=== PATIENT | male | born 1965 | race Caucasian/White ===

== ENCOUNTER 2021-07-09 06:42 | Day surgery (SDC) | payer OTHER, SELFPAY ==
[2021-06-25 15:43] VITALS: BMI 26.4
--- NOTE | 2021-07-08 17:33 | WPDANESEPP ---
Anes - Eval Pre Procedure Procedure: Operation Date: 07/09/21 07:30 Proposed Procedures p Screening Colonoscopy - Darío Mariano MD Date/Time: 07/08/21 17:33 Pre Op Diagnosis: neoplasm screening Patient Data Age: 56 Gender: M Height: 1.85 m Weight: 91 kg Allergies Allergy/AdvReac Type Severity Reaction Status Date / Time No Known Allergies Allergy Verified 06/25/21 15:41 Home Medications Medication Instructions Recorded Confirmed Type sodium,potassium,mag sulfates 17.5 See Rx Instructions PO .COMPLEX 06/06/21 Rx gram-3.13 gram-1.6 gram oral soln #354 ml sod picosulf 10 mg-magnes 3.5 160 ml PO DAILY #160 ml 06/17/21 Rx gram-citric 12 gram/160 mL oral solution mecobalamin (vitamin B12) 1,000 mcg PO DAILY 06/25/21 06/25/21 History Patient hx anesthesia problems: none Family hx anesthesia problems: none PMFSH Past Medical History Medical History (Updated 07/08/21 @ 17:33 by Tj Rojas DO) Diverticulosis Hyperlipemia Surgical History Surgical History H/O removal of cyst (~2011) Family History Family History Unknown Depression Anxiety Glaucoma Social History Social History Smoking status: Never smoker Alcohol intake: current Drinks per week: 10 Living arrangements: with family Spiritual care concerns: No Exam Day of Procedure 07/08/21 17:33
[2021-07-09 06:23] VITALS: BP 131/76; PULSE 68; RESP 14; TEMP 35.8; O2SAT 99; BMI 25.2
[2021-07-09] MEDS: LACTATED RINGERS 1,000 ML 150 ML IV CONT (06:34)
--- NOTE | 2021-07-09 06:39 | P.PNAN_ITS ---
Anes - Eval Final PreProcedure Day of Procedure 07/09/21 06:39 Patient weight: normal Heart: regular rate and rhythm Lungs: clear to auscultation Airway: Mallampati scale class II Neurological: alert and oriented Last oral intake: >/= 8 hours ASA classification: I Emergent: no Anesthetic plan: proceed Anesthesia type and monitoring: general GIVS and standard monitoring Informed Consent: The patient's anesthetic plan and its attendant risks and be nefits were discussed with the patient/family/POA. Questions were solicited and answers provided to the satisfaction of the patient/family/POA.
--- NOTE | 2021-07-09 07:29 | P.CONGI_ITS ---
Assessment and Plan Assessment and plan (1) History of colon polyps: Code(s): Z86.010 - Personal history of colonic polyps Status: Acute Assessment and Plan: Patient gives a history of prior colon polyps. Plan is for surveillance colonoscopy at this time. further recommendations will be determined at the time of endoscopy. Most typically follow-up happens at 5 year intervals after having had colon polyps. GI Consult Note Consult date/time: 07/09/21 07:29 HPI: Jj Fuentes is a 56 year old male presents for screening colonoscopy. Patient initially had colon polyps 14 years ago. Most recent colonoscopy was 9 years ago. Patient's current weight appetite bowel movements are normal. Patient denies abdominal pain. He has had no bleeding. Family history is noncontributory. Patient presents today for surveillance follow-up colonoscopy. Review of Systems Review of Systems: All systems reviewed & are unremarkable except as noted in HPI and below PMFSH Past Medical History Medical History (Updated 07/09/21 @ 07:31 by Darío Mariano MD) Diverticulosis Hyperlipemia Surgical History Surgical History H/O removal of cyst (~2011) Family History Family History Unknown Depression Anxiety Glaucoma Social History Social History Smoking status: Never smoker Alcohol intake: current Drinks per week: 10 Living arrangements: with family Spiritual care concerns: No Meds Home Medications and Allergies Home Medications Medication Instructions Recorded Confirmed Type mecobalamin (vitamin B12) 1,000 mcg PO DAILY 06/25/21 06/25/21 History ferrous sulfate 27 mg PO DAILY 07/09/21 07/09/21 History Allergies Allergy/AdvReac Type Severity Reaction Status Date / Time No Known Allergies Allergy Verified 07/09/21 06:20 Vital Signs Vital Signs - 24 hr 07/09/21 06:23 Temperature 96.4 F L Pulse Rate 68 Respiratory Rate 14 Blood Pressure 131/76 Pulse Oximetry 99 Exam Narrative: Physical exam reveals patient be alert. Vital signs are stable. HEENT exam is unremarkable. Patient is anicteric. Lungs are clear to auscultation and percussion. Heart is without murmur or extra sounds. Abdominal exam bowel sounds are present soft nontender with no organomegaly. Digital external rectal exam is normal.
[2021-07-09 07:52] VITALS: BP 97/58; PULSE 66; RESP 19; O2SAT 98
[2021-07-09 08:02] VITALS: BP 103/73; PULSE 65; RESP 21; O2SAT 99
[2021-07-09 08:12] VITALS: BP 127/85; PULSE 66; RESP 24; O2SAT 100
== END 2021-07-09 08:25 | disposition home or self-care (01) ==
PROVIDERS: PCP Family Medicine; Visit Provider Internal Medicine Gastroenterology
PROC: 0DJD8ZZ Inspection of Lower Intestinal Tract, Via Natural or Artificial Opening Endoscopic (ICD-10-PCS; CPT 45378; principal; 2021-07-09 07:30)
DX: Z12.11 Encounter for screening for malignant neoplasm of colon (principal); K63.5 Polyp of colon; K57.30 Diverticulosis of large intestine without perforation or abscess without bleeding; K64.8 Other hemorrhoids; E78.5 Hyperlipidemia, unspecified
CPT/HCPCS: 45385; J7120

== ENCOUNTER 2021-10-21 00:34 | Day surgery (SDC) | payer OTHER, SELFPAY ==
[2021-10-06 14:41] VITALS: BMI 26.4
[2021-10-21 11:36] VITALS: BP 129/79; PULSE 69; RESP 18; TEMP 36.1; O2SAT 100; BMI 25.9
--- NOTE | 2021-10-21 12:06 | WPDGICN ---
Assessment and Plan Assessment and plan (1) History of colon polyps: Code(s): Z86.010 - Personal history of colonic polyps Status: Acute Assessment and Plan: Patient has a history of colon polyps identified by colonoscopy in June. Follow-up colonoscopy is advised in 5 years. (2) Occult blood in stools: Code(s): R19.5 - Other fecal abnormalities Status: Acute Assessment and Plan: Patient recently had occult blood in his stool tested and found to be positive on 1/3 occasions. Likely this is related internal hemorrhoids found at recent colonoscopy. (3) Iron deficiency: Code(s): E61.1 - Iron deficiency Status: Acute Assessment and Plan: Patient had recent iron studies obtain is somewhat low on iron currently on iron replacement. In March of this year had mild normochromic normocytic anemia. This is corrected most recent CBC in August was unremarkable suggesting correction of this. Etiology unclear but likely related to hemorrhoids previously identified an EGD is requested will be performed today. GI Consult Note Consult date/time: 10/21/21 12:06 HPI: Jj Fuentes is a 56 year old male Presents for EGD. Patient has a history of colon polyps by a routine colonoscopy in June. At that time he also had hemorrhoids. Patient returned to primary care service and was found that in March of this year had mild normochromic normocytic anemia. Iron studies were obtained with a low ferritin identified. . Patient had 1/3 stool hemoccults positive for this reason he returns for EGD. Review of Systems Review of Systems: All systems reviewed & are unremarkable except as noted in HPI and below PMFSH Past Medical History Medical History Diverticulosis Hyperlipemia Surgical History Surgical History H/O removal of cyst (~2011) Family History Family History Unknown Depression Anxiety Glaucoma Social History Social History Alcohol intake: current Drinks per week: 10 Living arrangements: with family Spiritual care concerns: No Meds Home Medications and Allergies Home Medications Medication Instructions Recorded Confirmed Type mecobalamin (vitamin B12) 1,000 mcg PO DAILY 06/25/21 10/21/21 History ferrous sulfate 27 mg PO DAILY 07/09/21 10/21/21 History trazodone 50 mg tablet 50 mg PO QHS PRN #30 tablet 08/18/21 10/21/21 Rx magnesium tablet PO 10/06/21 History Allergies Allergy/AdvReac Type Severity Reaction Status Date / Time No Known Allergies Allergy Verified 10/21/21 11:45 Vital Signs Vital Signs - 24 hr 10/21/21 11:36 Temperature 97.0 F L Pulse Rate 69 Respiratory Rate 18 Blood Pressure 129/79 Pulse Oximetry 100 Exam Narrative: Physical exam reveals patient be alert. Vital signs stable. HEENT exam is unremarkable. Patient is anicteric. Lungs are clear to auscultation and percussion. Heart is without murmur or extra sounds. Abdominal exam bowel sounds present soft nontender with no hepatosplenomegaly. Digital external rectal exam unremarkable.
[2021-10-21] MEDS: LACTATED RINGERS 1,000 ML 150 ML IV CONT (12:11)
--- NOTE | 2021-10-21 12:11 | P.PNAN_ITS ---
Anes - Initial Pre Proc Eval Procedure: Operation Date: 10/21/21 13:00 Proposed Procedures p Esophagogastroduodenoscopy - Darío Mariano MD Date/Time: 10/21/21 12:11 Surgeon: Darío Mariano MD Pre Op Diagnosis: anemia Patient Data Age: 56 Gender: M Height: 1.85 m Weight: 89.3 kg Last Vital Signs Temp 36.1 C L 10/21/21 11:36 Pulse 69 10/21/21 11:36 Resp 18 10/21/21 11:36 BP 129/79 10/21/21 11:36 Pulse Ox 100 10/21/21 11:36 Allergies Allergy/AdvReac Type Severity Reaction Status Date / Time No Known Allergies Allergy Verified 10/21/21 11:45 Home Medications Medication Instructions Recorded Confirmed Type mecobalamin (vitamin B12) 1,000 mcg PO DAILY 06/25/21 10/21/21 History ferrous sulfate 27 mg PO DAILY 07/09/21 10/21/21 History trazodone 50 mg tablet 50 mg PO QHS PRN #30 tablet 08/18/21 10/21/21 Rx magnesium tablet PO 10/06/21 History Patient hx anesthesia problems: none Family hx anesthesia problems: none Results Review: All pre-operative results and documents have been reviewed as part of the pre-operative evaluation. [facility] Past Medical History Medical History Diverticulosis Hyperlipemia Surgical History Surgical History (Updated 10/21/21 @ 12:11 by Ezio Crump MD) H/O colonoscopy H/O removal of cyst (~2011) Family History Family History Unknown Depression Anxiety Glaucoma Social History Social History Alcohol intake: current Drinks per week: 10 Living arrangements: with family Spiritual care concerns: No Anes - Eval Final PreProcedure Day of Procedure 10/21/21 12:11 Patient weight: normal Heart: regular rate and rhythm Lungs: clear to auscultation Airway: Mallampati scale class II Neurological: alert and oriented Last oral intake: >/= 8 hours ASA classification: II Emergent: no Anesthetic plan: proceed Anesthesia type and monitoring: general GIVS and standard monitoring Results Review: All pre-operative results and documents have been reviewed as part of the pre-operative evaluation. Informed Consent: The patient's anesthetic plan and its attendant risks and benefits were discussed with the patient/family/POA. Questions were solicited and answers provided to the satisfaction of the patient/family/POA.
[2021-10-21 13:13] VITALS: BP 89/51; PULSE 67; RESP 17; O2SAT 97
[2021-10-21 13:23] VITALS: BP 97/52; PULSE 70; RESP 21; O2SAT 99
[2021-10-21 13:33] VITALS: BP 122/69; PULSE 74; RESP 19; O2SAT 100
--- NOTE | 2021-10-22 09:20 | SUR.PHASEII ---
[id number] Dr Mariano made aware of positive H. Pylori. MD also given copy of result. No new orders given.
== END 2021-10-21 13:40 | disposition home or self-care (01) ==
PROVIDERS: PCP Family Medicine; Visit Provider Internal Medicine Gastroenterology
PROC: 0DJ08ZZ Inspection of Upper Intestinal Tract, Via Natural or Artificial Opening Endoscopic (ICD-10-PCS; CPT 43235; principal; 2021-10-21 13:00)
DX: D50.9 Iron deficiency anemia, unspecified (principal); K57.30 Diverticulosis of large intestine without perforation or abscess without bleeding; K64.9 Unspecified hemorrhoids; A04.8 Other specified bacterial intestinal infections; R19.5 Other fecal abnormalities; E78.5 Hyperlipidemia, unspecified; Z86.010 Personal history of colon polyps
CPT/HCPCS: 43239; 87081; J2704; J7120

== ENCOUNTER 2022-01-09 12:35 | Outpatient (CLI) | payer OTHER, SELFPAY ==
[2022-01-12 06:02] LABS: H pylori Ag Stool Detected (Not Detected)
== END 2022-01-09 12:36 | disposition home or self-care (01) ==
LOC: ANHLAB 12:36
PROVIDERS: PCP Family Medicine; Visit Provider Internal Medicine Gastroenterology
DX: A04.8 Other specified bacterial intestinal infections (principal)
CPT/HCPCS: 87338

== ENCOUNTER 2022-03-02 12:44 | Outpatient (CLI) | payer OTHER, SELFPAY ==
[2022-03-04 17:50] LABS: H pylori Ag Stool Not Detected (Not Detected)
== END 2022-03-02 12:45 | disposition home or self-care (01) ==
LOC: ANHLAB 12:46
PROVIDERS: PCP Family Medicine; Visit Provider Internal Medicine Gastroenterology
DX: A04.8 Other specified bacterial intestinal infections (principal)
CPT/HCPCS: 87338

== ENCOUNTER 2022-03-07 11:51 | Emergency (ER) | payer OTHER, SELFPAY ==
--- NOTE | ~2022-03-07 | CT_ITS ---
EXAMINATION: CT brain wo con, CT cervical spine wo con EXAM DATE: 03/07/2022 12:35 INDICATION: Fall, head injury. TECHNIQUE: Spiral CT of the head was performed without contrast. Axial, coronal and sagittal images were reviewed. Spiral CT of the cervical spine was performed without contrast. Axial images were rev iewed. Coronal and sagittal reformatted images were also reviewed. The dose-length product (DLP) fo r this examination was 681.00 (accession [id number]), 384.80 (accession [id number]) mGy-cm. The exposure was tailored according to patient size, and iterative reconstruction (ASIR) was used as additional dose reduction technique. There is no prior study for comparison. FINDINGS: HEAD CT: There is no acute intraparenchymal hemorrhage. No evidence of intraparenchymal brain mass l esion. No evidence of acute infarction. There is no mass effect or midline shift. There is no obstru ctive hydrocephalus suspected. There are no extra-axial collections. There are no acute calvarial f ractures. The orbits are unremarkable. Soft tissue is unremarkable. The visualized sinuses and mas toid air cells are well aerated. Moderate to severe leftward nasal septal deviation. CERVICAL CT: There is moderate C5-6 disc disease, moderate to severe bilateral neural foraminal steno sis at that level. Moderate right C4-5 neural foraminal stenosis due to advanced facet arthropathy. O therwise relatively mild cervical spondylosis. There is no evidence of acute cervical fracture. The odontoid process is intact. Pre-dens space is normal. Prevertebral soft tissue is normal. There ar e no soft tissue abnormalities identified. There is no disc space widening or traumatic vertebral vicky dy subluxation suspected. A detailed level by level evaluation of spondylosis can be added as adde ndum if requested. IMPRESSION: No acute intracranial findings or cervical fracture. Reviewed, dictated and finalized at location A. IMPRESSION: No acute intracranial findings or cervical fracture.
--- NOTE | ~2022-03-07 | XR_ITS ---
EXAMINATION: XR pelvis 1-2V, XR sacrum coccyx min 2V EXAM DATE: 03/07/2022 12:43 INDICATION: Fall On [place] Tailbone Pain . Initial encounter. TECHNIQUE: Frontal projection pelvis. Frontal, inlet, lateral projections of the sacrum/coccyx. The re is no prior study for comparison. FINDINGS: Sacrum, sacroiliac joints, sacral arcuate lines are intact. There are no acute pelvic or sa cral fractures or dislocations identified. There is no subcutaneous gas. The soft tissue is unremar kable. There are no radiopaque foreign bodies. There is mild symmetric bilateral hip primary osteo arthritis. IMPRESSION: No acute osseous findings. Reviewed, dictated and finalized at location A. IMPRESSION: No acute osseous findings. IMPRESSION: No acute osseous findings.
[2022-03-07 12:00] VITALS: BP 154/87; PULSE 67; RESP 15; TEMP 36.6; O2SAT 100
[2022-03-07 12:09] VITALS: BP 154/87
--- NOTE | 2022-03-07 12:14 | ED.GENADULT ---
HPI - General Adult General Chief complaint: Head Injury Stated complaint: fell, head injury Time Seen by Provider: 03/07/22 12:05 Source: RN notes reviewed History of Present Illness HPI narrative: Patient presents emergency department from home via EMS for fall. Patient states he was moving furniture and was carrying pressure down off a ramp he is at the bottom of the ramp walking backwards when he tripped and fell backwards he states he initially landed on his buttocks and then fell backwards striking the back of his head on the concrete he having sustained a laceration to the posterior scalp he denies any loss of consciousness he does note pain in his tailbone he denies any vision changes chest pain shortness of breath abdominal pain nausea or vomiting states he does have some mild neck tenderness patient states last tetanus shot was 6 months ago Related Data Home Medications Medication Instructions Recorded Confirmed mecobalamin (vitamin B12) 1,000 mcg PO DAILY 06/25/21 01/19/22 magnesium tablet PO 10/06/21 01/19/22 ferrous sulfate 325 mg (65 mg 325 mg PO DAILY 01/19/22 01/19/22 iron) tablet Allergies Allergy/AdvReac Type Severity Reaction Status Date / Time No Known Allergies Allergy Verified 03/07/22 12:09 Review of Systems Review of Systems: Gen.: Denies fevers or chills Eyes: Denies eye pain or visual change ENT: Denies congestion Respiratory: Denies shortness of breath or cough CV: Denies chest pain or palpitations GI: Denies abdominal pain nausea, emesis or diarrhea Musculoskeletal: See HPI Neuro: Denies numbness, tingling, weakness or focal weakness Skin: See HPI Except as documented, all other systems reviewed and negative [facility] Past Medical History Medical History Diverticulosis Hyperlipemia Surgical History Surgical History H/O colonoscopy H/O removal of cyst (~2011) Family History Family History Unknown Depression Anxiety Glaucoma Social History Social History Alcohol intake: current Drinks per week: 10 Spiritual care concerns: No Exam Narrative: APPEARANCE: No acute distress, nontoxic, resting in bed EYES: EOMI HEENT: Normocephalic, 4 cm laceration over the posterior scalp that is linear and deep with mild venous bleeding no foreign bodies, no facial tenderness Neck: C-collar present, no midline tenderness palpation tender palpation bilateral paravertebral muscles C5-7 RESPIRATORY: No respiratory distress Clear to auscultation bilaterally with no rhonchi wheezing or rales. CARDIOVASCULAR: Regular rate and rhythm without murmurs rubs or gallops. ABDOMINAL: Soft, nontender, nondistended, no rebound or guarding MUSCULOSKELETAl: Moves all extremities. No clubbing, cyanosis or edema. Back: No midline thoracic or lumbar tenderness palpation NEURO: Awake and alert x 4. Following commands, speech normal, no focal deficits SKIN:: Warm, dry. No rashes lesions or abrasions PSYCHIATRIC: Normal affect/mood, Course Course Emergency Course: Discussed with patient results of workup and diagnosis. Discussed need for follow-up with primary care, proper use of medication, and reasons to return to the emergency department. Patient understands and agrees to current treatment plan Vital Signs Vital signs: Vital Signs Temperature 97.8 F 03/07/22 12:00 Pulse Rate 67 03/07/22 12:00 Respiratory Rate 15 03/07/22 12:00 Blood Pressure 154/87 H 03/07/22 12:00 Pulse Oximetry 100 03/07/22 12:00 Temperature 97.8 F 03/07/22 12:00 Pulse Rate 67 03/07/22 12:00 Respiratory Rate 15 03/07/22 12:00 Blood Pressure 154/87 H 03/07/22 12:09 Pulse Oximetry 100 03/07/22 12:00 Procedures Laceration Laceration 1: ====== Skin Level ======
--- NOTE | 2022-03-07 12:19 | PC.NURSE ---
Pt to CT scan via stretcher a this time.
[2022-03-07] MEDS: ACETAMINOPHEN 500 MG TABLET 1000 MG PO (12:48)
--- NOTE | 2022-03-07 12:56 | PC.NURSE ---
C Collar removed by EDP Dr Majano following neg scan.
[2022-03-07 13:28] VITALS: BP 154/92; PULSE 70; RESP 12; O2SAT 100
== END 2022-03-07 13:30 | disposition home or self-care (01) ==
PROVIDERS: Emergency Provider Emergency Medicine; PCP Family Medicine
DX: S01.01XA Laceration without foreign body of scalp, initial encounter (principal); S16.1XXA Strain of muscle, fascia and tendon at neck level, initial encounter; S30.0XXA Contusion of lower back and pelvis, initial encounter; E78.5 Hyperlipidemia, unspecified; W01.0XXA Fall on same level from slipping, tripping and stumbling without subsequent striking against object, initial encounter
CPT/HCPCS: 12002; 70450; 72125; 72170; 72220; 99284; A9270